=== PATIENT | male | born 1930 | race Caucasian/White ===

== ENCOUNTER 2018-07-04 05:49 | Outpatient (CLI) | payer MEDICARE ==
[~2018-07-04] VITALS: Ht 165.1 cm; Wt 74.8 kg
[2018-07-04] MEDS ORDERED: PANT40TA3 PO (10:53)
[2018-07-04] MEDS ORDERED: ATOR40TA70 PO (10:53)
[2018-07-04] MEDS ORDERED: AMLO5TAB9 PO (10:53)
[2018-07-04] MEDS ORDERED: CARB1TAB19 PO (10:53)
[2018-07-04] MEDS ORDERED: HYDR50TA76 PO (10:53)
[2018-07-04] MEDS ORDERED: POTA10TA6 PO (11:09)
[2018-07-04] MEDS ORDERED: TAMS0.4C98 PO (11:09)
[2018-07-04] MEDS ORDERED: FURO40TA4 PO ×2 (11:09)
== END 2018-07-04 11:13 | disposition home or self-care (01) ==
LOC: PREOP 05:49
PROVIDERS: ATTEND Urology
DX: Z01.818 Encounter for other preprocedural examination (principal)

== ENCOUNTER 2018-07-10 06:39 | Day surgery (SDC) | payer MEDICARE ==
[~2018-07-10] VITALS: Ht 165.1 cm; Wt 74.8 kg
[2018-07-10] VITALS (10 sets, daily range): BP systolic 119–138; BP diastolic 58–73
[~2018-07-10 06:39] MED LIST: AMLO5TAB9 PO; ATOR40TA70 PO; CARB1TAB19 PO; FURO40TA4 PO; HYDR50TA76 PO; PANT40TA3 PO; POTA10TA6 PO; TAMS0.4C98 PO
[2018-07-10] MEDS ORDERED: LACTATED RINGERS 1,000 ML IV PRN ×2 (07:23→07:52)
--- NOTE | 2018-07-10 07:29 | Progress Note-Pre Operative ---
Pre-Operative Progress Note H&P Reviewed The H&P was reviewed, patient examined and no changes noted. Date Seen by Provider: July 10, 2018 Time Seen by Provider: 07: Date H&P Reviewed: July 10, 2018 Time H&P Reviewed: :29 Pre-Operative Diagnosis: BPH AND RETENTION JEN REYES MD July 10, 2018 07:29
[2018-07-10] MEDS ORDERED: FAMOTIDINE 20MG/2ML IV (PEPCID) IV ONE (07:30)
[2018-07-10] MEDS ORDERED: cefTRIAXone 1,000 MG IV (ROCEPHIN) VIAL ONE ×2 (07:56)
[2018-07-10] MEDS ORDERED: WATER (STERILE) FOR INJECTION 10 ML ONE (07:56)
[2018-07-10] MEDS ORDERED: cefTRIAXone FOR IV USE 1,000 MG in WATER (STERILE) FOR INJECTION 10 ML IV ONE (08:00)
[2018-07-10] MEDS ORDERED: SEVOFLURANE (ULTANE) 15 ML INHAL SOLN ONE (08:14)
[2018-07-10] MEDS ORDERED: proPOfol 200 MG/20 ML (DIPRIVAN) VIAL IV ONE (08:14)
[2018-07-10] MEDS ORDERED: LIDOCAINE PF 2% 5 ML (XYLOCAINE) VIAL ONE (08:14)
[2018-07-10] MEDS ORDERED: fentaNYL INJECTION 100 MCG/2 ML AMP ONE (08:15)
--- OUTSIDE RECORDS SUMMARY | 2018-07-10 08:42 | XMS REPORT | Continuity of Care Document ---
Author Organization Unknown Address Unknown Allergies Active Description Code Type Severity Reaction Onset Reported/Identified Relationship to Patient Clinical Status Yes NO KNOWN DRUG ALLERGIES NO KNOWN DRUG ALLERG UNKNOWN Yes NO KNOWN DRUG ALLERGIES UNKNOWN NO KNOWN DRUG ALLERG Medications Medication Packaging Start Date Stop Date Route Dosage Sig CEFDINIR CAP 300 MG (OMNICEF) MG 12/07/2016 ONCE&2211 IPRATROPIUM/ALBUTEROL INH SOLN (DUO-NEB INH SOLN) MLS 12/07/2016 12/07/2016 ONCE&2211 Fluarix QUAD 3044-0017 (PF) (flu vac 36mos up(PF)Adult IM syringe ML 01/22/2017 01/22/2017 ONCE&1900 HYDRALAZINE TAB 25 MG (APRESOLINE) Dose(s) 01/22/2017 01/29/2017 TID&0800,1400,2000 CARBI/L-DOPA 25/100 TAB 0 (SINEMET 25/100) Dose(s) 01/22/2017 01/29/2017 BID&0800,2000 NORMAL SALINE 1000CC IV BAG INJ 0.9 % (NS 1000CC IV BAG) ml 01/22/2017 02/06/2017 CONTINUOUSEVERY 0 Hour Normal Saline 1000cc W/KCl 20mEq ml 01/22/2017 01/29/2017 CONTINUOUSEVERY 0 Hour POTASSIUM CHLORIDE 10% LIQ 20 MEQ/15CC MEQ 01/22/2017 01/22/2017 ONCE&2013 PANTOPAZOLE VIAL INJ 40 MG (PROTONIX IV) MG 01/22/2017 01/31/2017 Daily&2100 FENTANYL INJ 100 MCG/2CC VIAL MCG 01/22/2017 01/25/2017 PRN Q2H Piperacillin-tazobactam IV 3.375Gm vial (Zosyn) GM 01/22/2017 01/29/2017 Q8H&0600,1400,2200 ACETAMINOPHEN ORAL TABLET 325mg(Tylenol) MG 01/23/2017 02/01/2017 PRN EVERY 4 Hour ACETAMINOPHEN SUPPOS SUP 650 MG (TYLENOL) MG 01/23/2017 01/29/2017 PRN Q4H CALMOSEPTINE OINT TUBE (RISAMINE OINT) anuel 01/23/2017 01/29/2017 BID&0800,2000 AMLODIPINE TAB 5 MG (NORVASC) Dose(s) 01/23/2017 01/29/2017 Daily&0900 NORMAL SALINE 1000CC IV BAG INJ 0.9 % (NS 1000CC IV BAG) ml 01/23/2017 02/07/2017 CONTINUOUSEVERY 0 Hour FLUCONAZOLE IV PREMIX BAG INJ 200 MG/100CC (DIFLUCAN IV 100CC BAG) MG 01/23/2017 01/23/2017 Q24H&1400 FLUCONAZOLE IV PREMIX BAG INJ 200 MG/100CC (DIFLUCAN IV 100CC BAG) MG 01/24/2017 01/30/2017 Q24H&1400 POTASSIUM CHLORIDE TAB 20 MEQ (K-DUR) MEQ 03/09/2017 03/09/2017 ONCE&1416 HYDRALAZINE TAB 25 MG (APRESOLINE) MG 03/11/2017 03/17/2017 TID&0800,1400,2000 CARBI/L-DOPA 25/100 TAB 0 (SINEMET 25/100) tab 03/11/2017 03/17/2017 BID&0800,2000 POTASSIUM CHLORIDE TAB 10 MEQ (K-DUR) MEQ 03/11/2017 03/17/2017 Daily&0900 IRON/FOLIC ACID/B12 CAP 0 (NIFEREX FORTE-150) cap 03/11/2017 03/17/2017 Daily&0900 AMLODIPINE TAB 5 MG (NORVASC) MG 03/17/2017 Daily&0900 Aspirin ENTERIC COATED TAB 325 MG (ECOTRIN) MG 03/11/2017 03/17/2017 Daily&0900 ACETAMINOPHEN ORAL TABLET 325mg(Tylenol) MG 03/18/2017 03/28/2017 PRN EVERY 6 Hour LORAZEPAM TAB 0.5 MG (ATIVAN) MG 04/17/2017 PRN Q6H POLYETHYLENE GLYCOL POWDER UD PWD (MIRALAX 17GM UNIT DOSE PAKS) gm 03/18/2017 04/17/2017 PRN Q3H Haloperidol 0.25mg (Haldol) oral tablet MG 03/18/2017 03/28/2017 PRN Q6H ALUM/MAG/SIMETH 30CC LIQ (MYLANTA PLUS) cc 03/18/2017 04/17/2017 PRN Q4H TAMSULOSIN CAP 0.4 MG (FLOMAX) MG 03/18/2017 04/16/2017 QPM&1800 CARBI/L-DOPA 25/100 TAB (SINEMET 25/100) tab 03/18/2017 04/17/2017 BID&0800,2000 SIMVASTATIN TAB 40 MG (ZOCOR) MG 04/16/2017 QPM&2000 LACTULOSE SYRUP LIQ 20 GM/30CC (CHRONULAC SYRUP) GM 03/18/2017 03/28/2017 BID&0800,2000 HYDRALAZINE TAB 25 MG (APRESOLINE) MG 03/18/2017 04/17/2017 TID&0800,1400,2000 MILK OF MAGNESIA LIQ ml 03/18/2017 03/25/2017 PRN BID ASPIRIN ENTERIC COATED TAB 81 MG (BABY ASPIRIN EC) MG 03/18/2017 04/16/2017 QHS&2100 CALMOSEPTINE OINT TUBE (RISAMINE OINT) anuel 03/18/2017 04/17/2017 PRN QID LOPERAMIDE CAP 2 MG (IMMODIUM) MG 03/18/2017 03/25/2017 PRN QID CIPROFLOXACIN TAB 500 MG (CIPRO) MG 03/19/2017 03/19/2017 ONCE&0800 AMLODIPINE TAB 5 MG (NORVASC) MG 04/17/2017 Daily&0900 PANTOPRAZOLE TAB 40 MG (PROTONIX) MG 03/19/2017 04/17/2017 Daily&0900 POTASSIUM CHLORIDE TAB 20 MEQ (K-DUR) MEQ 03/19/2017 04/17/2017 Daily&0900 FUROSEMIDE TAB 80 MG (LASIX) MG 04/17/2017 Daily&0900 BISACODYL SUPPOS 10 MG (DULCOLAX SUPPOS) MG 03/19/2017 03/26/2017 PRN Daily CYANOCOBALAMIN TAB 1000 MCG (VIT B 12) MCG 03/19/2017 04/17/2017 Daily&0900 URO-JET (LIDOCAINE) INJ 2 % (UROJECT) APPLICATION 03/23/2017 03/23/2017 ONCE&1505 URO-JET (LIDOCAINE) INJ 2 % (UROJECT) APPLICATION 07/02/2018 07/02/2018 ONCE&1645 Problems Date Dx Coded Attending Type Code Diagnosis Diagnosed By 01/06/2016 W 272.4 OTHER AND UNSPECIFIED HYPERLIPIDEMIA 01/06/2016 W 401.0 MALIGNANT ESSENTIAL HYPERTENSION 01/06/2016 W 427.31 ATRIAL FIBRILLATION 01/06/2016 W 428.9 HEART FAILURE , UNSPECIFIED 01/06/2016 A 578.9 01/06/2016 W E78.5 HYPERLIPIDEMIA , UNSPECIFIED 01/06/2016 W I10 ESSENTIAL ( PRIMARY) HYPERTENSION 01/06/2016 W I48.91 UNSPECIFIED ATRIAL FIBRILLATION 01/06/2016 W I50.9 HEART FAILURE , UNSPECIFIED 01/06/2016 A K92.2 GASTROINTESTINAL HEMORRHAGE, UNSPECIFIED 02/19/2016 Edgardo Burks 272.4 OTHER AND UNSPECIFIED HYPERLIPIDEMIA 02/19/2016 Edgardo Burks 401.9 UNSPECIFIED ESSENTIAL HYPERTENSION 02/19/2016 Edgardo Burks 427.31 ATRIAL FIBRILLATION 02/19/2016 Edgardo Burks 428.0 02/19/2016 Edgardo Burks 780.60 02/19/2016 Edgardo Burks 786.2 02/19/2016 Edgardo Burks E78.5 HYPERLIPIDEMIA, UNSPECIFIED 02/19/2016 Edgardo Burks I10 ESSENTIAL (PRIMARY) HYPERTENSION 02/19/2016 Edgardo Burks I48.91 UNSPECIFIED ATRIAL FIBRILLATION 02/19/2016 Edgardo Burks I50.9 HEART FAILURE, UNSPECIFIED 02/19/2016 Edgardo Burks R05 COUGH 02/19/2016 Edgardo Burks R50.9 FEVER, UNSPECIFIED 02/19/2016 Edgardo Burks 466.0 ACUTE BRONCHITIS 02/19/2016 Edgardo Burks J20.9 ACUTE BRONCHITIS, UNSPECIFIED 12/07/2016 Brokob, Kiara A 466.0 ACUTE BRONCHITIS 12/07/2016 Brokob, Kiara A J20.9 ACUTE BRONCHITIS, UNSPECIFIED 01/22/2017 Socrates Mcknight 272.4 01/22/2017 Socrates Mcknight 332.0 PARALYSIS AGITANS 01/22/2017 Socrates Mcknight W 401.9 UNSPECIFIED ESSENTIAL HYPERTENSION 01/22/2017 Kido, Takaaki W 427.31 ATRIAL FIBRILLATION 01/22/2017 Sabino Mcknightki W 428.0 CONGESTIVE HEART FAILURE, UNSPECIFIED 01/22/2017 Socrates Mcknight W E78.5 HYPERLIPIDEMIA, UNSPECIFIED 01/22/2017 Juan Luis Takvernaki W G20 PARKINSON'S DISEASE 01/22/2017 Juan Luis Takvernaki W I10 ESSENTIAL (PRIMARY) HYPERTENSION 01/22/2017 Socrates Mcknight W I48.2 CHRONIC ATRIAL FIBRILLATION 01/22/2017 Socrates Mcknight W I50.9 HEART FAILURE, UNSPECIFIED 01/22/2017 Socrates Mcknight W R13.1 DYSPHAGIA 01/22/2017 Sabino Mcknightki W 272.4 01/22/2017 Socrates Mcknight W 332.0 PARALYSIS AGITANS 01/22/2017 Sabino Mcknightki W 401.9 UNSPECIFIED ESSENTIAL HYPERTENSION 01/22/2017 Sabino Mcknightki W 427.31 ATRIAL FIBRILLATION 01/22/2017 Socrates Mcknight W 428.0 01/22/2017 Socrates Mcknight W E78.5 HYPERLIPIDEMIA, UNSPECIFIED 01/22/2017 Socrates Mcknight W G20 PARKINSON'S DISEASE 01/22/2017 Socrates Mcknight W I10 ESSENTIAL (PRIMARY) HYPERTENSION 01/22/2017 Socrates Mcknight W I48.2 CHRONIC ATRIAL FIBRILLATION 01/22/2017 Socrates Mcknight W I50.9 HEART FAILURE, UNSPECIFIED 01/22/2017 Socrates Mcknight W R13.1 DYSPHAGIA 01/22/2017 Sabino Mcknightki W 272.4 01/22/2017 Sabino Mcknightki W 332.0 PARALYSIS AGITANS 01/22/2017 Sabino Mcknightki W 401.9 UNSPECIFIED ESSENTIAL HYPERTENSION 01/22/2017 Sabino Mcknightki W 427.31 ATRIAL FIBRILLATION 01/22/2017 Sabino Mcknightki W 428.0 01/22/2017 Socrates Mcknight W E78.5 HYPERLIPIDEMIA, UNSPECIFIED 01/22/2017 Sabino Mcknightki W G20 PARKINSON'S DISEASE 01/22/2017 Socrates Mcknight W I10 ESSENTIAL (PRIMARY) HYPERTENSION 01/22/2017 Socrates Mcknight W I48.2 CHRONIC ATRIAL FIBRILLATION 01/22/2017 Juan LuisRussjennifer W I50.9 HEART FAILURE, UNSPECIFIED 01/22/2017 Juan Luis Russjennifer W R13.1 DYSPHAGIA 01/24/2017 Socrates Mcknight A 112.84 01/24/2017 Juan Luis Russjennifer W 272.4 01/24/2017 Socrates Mcknight W 285.9 01/24/2017 Socrates Mcknight W 332.0 PARALYSIS AGITANS 01/24/2017 Socrates Mcknight W 401.9 UNSPECIFIED ESSENTIAL HYPERTENSION 01/24/2017 Socrates Mcknight W 427.31 ATRIAL FIBRILLATION 01/24/2017 Socrates Mcknight W 428.0 01/24/2017 Socrates Mcknight W 530.81 01/24/2017 Socrates Mcknight W 535.50 01/24/2017 Juan Luis Russjennifer W 552.3 01/24/2017 Socrates Mcknight A B37.81 01/24/2017 Socrates Mcknight W D64.9 ANEMIA, UNSPECIFIED 01/24/2017 Juan Luis Russjennifer W E78.5 HYPERLIPIDEMIA, UNSPECIFIED 01/24/2017 Juan Luis Russjennifer W G20 PARKINSON'S DISEASE 01/24/2017 Socrates Mcknight W I10 ESSENTIAL (PRIMARY) HYPERTENSION 01/24/2017 Juan Luis Russjennifer W I48.2 CHRONIC ATRIAL FIBRILLATION 01/24/2017 Juan Luis Russjennifer W I50.9 HEART FAILURE, UNSPECIFIED 01/24/2017 oScrates Mcknight W K21.0 01/24/2017 Socrates Mcknight W K29.60 OTHER GASTRITIS WITHOUT BLEEDING 01/24/2017 Socrates Mcknight W K44.9 DIAPHRAGMATIC HERNIA WITHOUT OBSTRUCTION OR GANGRENE 01/24/2017 Socrates Mcknight W R13.1 DYSPHAGIA 03/09/2017 Jean-Paul Mckeon 788.20 RETENTION OF URINE, UNSPECIFIED 03/09/2017 Jean-Paul Mckeon R33.9 RETENTION OF URINE, UNSPECIFIED 03/11/2017 Santiago Porras 599.0 URINARY TRACT INFECTION, SITE NOT SPECIFIED 03/11/2017 Santiago Porras 788.20 RETENTION OF URINE, UNSPECIFIED 03/11/2017 Santiago Porras N39.0 URINARY TRACT INFECTION, SITE NOT SPECIFIED 03/11/2017 Chiquita Santiago Phillips R33.9 RETENTION OF URINE, UNSPECIFIED 03/11/2017 IMLES MTZ A 788.20 RETENTION OF URINE, UNSPECIFIED 03/11/2017 BIBIMILES A R33.9 RETENTION OF URINE, UNSPECIFIED 03/12/2017 Santiago Porras A 788.20 RETENTION OF URINE, UNSPECIFIED 03/12/2017 Santiago Porras A R33.9 RETENTION OF URINE, UNSPECIFIED 03/13/2017 Rosa M Clemente A 788.20 RETENTION OF URINE, UNSPECIFIED 03/13/2017 Rosa M Clemente A R33.9 RETENTION OF URINE, UNSPECIFIED 03/18/2017 Floyd, Jer W 307.9 OTHER AND UNSPECIFIED SPECIAL SYMPTOMS OR SYNDROMES, NOT ELSEWHERE CLASSIFIED 03/18/2017 Floyd, Jer W 332.0 PARALYSIS AGITANS 03/18/2017 Floyd, Jer W 427.32 ATRIAL FLUTTER 03/18/2017 Floyd Jer W F03 UNSPECIFIED DEMENTIA 03/18/2017 Floyd Jer W G20 PARKINSON'S DISEASE 03/18/2017 Floyd, Jer W I48.1 PERSISTENT ATRIAL FIBRILLATION 03/18/2017 Floyd Jer W R45.1 RESTLESSNESS AND AGITATION 03/18/2017 Floyd, Jer W 307.9 OTHER AND UNSPECIFIED SPECIAL SYMPTOMS OR SYNDROMES, NOT ELSEWHERE CLASSIFIED 03/18/2017 Floyd, Jer W 332.0 PARALYSIS AGITANS 03/18/2017 Floyd Jer W 401.9 03/18/2017 Floyd, Jer W 427.32 ATRIAL FLUTTER 03/18/2017 Floyd, Jer W 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 (LUTS) 03/18/2017 FloydGutierrezb W 788.20 03/18/2017 Floyd Jer W F03 UNSPECIFIED DEMENTIA 03/18/2017 Floyd Jer W G20 PARKINSON'S DISEASE 03/18/2017 Floyd Jer W I10 ESSENTIAL (PRIMARY) HYPERTENSION 03/18/2017 FloydGutierrez simmonsb W I48.1 PERSISTENT ATRIAL FIBRILLATION 03/18/2017 Floyd, Jer W N40.1 ENLARGED PROSTATE WITH LOWER URINARY TRACT SYMPTOMS 03/18/2017 FloydXochilt simmonshaib W R33.9 RETENTION OF URINE, UNSPECIFIED 03/18/2017 Floyd Jer W R45.1 RESTLESSNESS AND AGITATION 03/20/2017 Floyd, Jer W 307.9 OTHER AND UNSPECIFIED SPECIAL SYMPTOMS OR SYNDROMES, NOT ELSEWHERE CLASSIFIED 03/20/2017 Floyd, Jre W 332.0 PARALYSIS AGITANS 03/20/2017 Floyd Jer W 401.9 03/20/2017 Floyd Jer W 427.32 03/20/2017 Floyd, Jer W 600.01 03/20/2017 Floyd Jer W 788.20 03/20/2017 Floyd, Jer W F03 UNSPECIFIED DEMENTIA 03/20/2017 Floyd, Jer W G20 PARKINSON'S DISEASE 03/20/2017 Floyd Jer W I10 ESSENTIAL (PRIMARY) HYPERTENSION 03/20/2017 FloydGutierrez simmonsb W I48.1 PERSISTENT ATRIAL FIBRILLATION 03/20/2017 FloydGutierrez simmonsb W N40.1 ENLARGED PROSTATE WITH LOWER URINARY TRACT SYMPTOMS 03/20/2017 FloydXochilt simmonshaib W R33.9 RETENTION OF URINE, UNSPECIFIED 03/20/2017 FloydGutierrez simmonsb W R45.1 RESTLESSNESS AND AGITATION 03/21/2017 Xochilt Barrientoshaib A 290.41 03/21/2017 Floyd, Jer W 296.20 03/21/2017 Floyd, Jer W 307.9 OTHER AND UNSPECIFIED SPECIAL SYMPTOMS OR SYNDROMES, NOT ELSEWHERE CLASSIFIED 03/21/2017 FloydXochilt simmonshaib W 332.0 PARALYSIS AGITANS 03/21/2017 Floyd Jer W 401.9 03/21/2017 Floyd, Jer W 427.32 03/21/2017 Floyd Jer W 600.01 03/21/2017 Floyd Jer W 788.20 03/21/2017 Gutierrez Barrientosb A F01.51 03/21/2017 Gutierrez Barrientosb W F03 UNSPECIFIED DEMENTIA 03/21/2017 Gutierrez Barrientosb W F32.9 MAJOR DEPRESSIVE DISORDER, SINGLE EPISODE, UNSPECIFIED 03/21/2017 Gutierrez Barrientosb W G20 PARKINSON'S DISEASE 03/21/2017 FloydGutierrezb W I10 ESSENTIAL (PRIMARY) HYPERTENSION 03/21/2017 Floyd, Jer W I48.1 PERSISTENT ATRIAL FIBRILLATION 03/21/2017 FloydXochiltJer W I48.2 CHRONIC ATRIAL FIBRILLATION 03/21/2017 FloydGutierrezb W N40.1 ENLARGED PROSTATE WITH LOWER URINARY TRACT SYMPTOMS 03/21/2017 FloydXochiltJer W R33.9 RETENTION OF URINE, UNSPECIFIED 03/21/2017 Gutierrez Barrientosb W R45.1 RESTLESSNESS AND AGITATION 03/21/2017 Floyd, Jer W R45.850 03/21/2017 Floyd, Jer W V62.85 03/23/2017 Nader Hartman A 788.20 RETENTION OF URINE, UNSPECIFIED 03/23/2017 Nader Hartman A R33.9 RETENTION OF URINE, UNSPECIFIED 10/09/2017 Bryn, Rosa M W 782.3 EDEMA 10/09/2017 [facility], Rosa M W R60.0 LOCALIZED EDEMA 10/09/2017 [facility], Rosa M A 401.0 MALIGNANT ESSENTIAL HYPERTENSION 10/09/2017 [facility], Rosa M W 782.3 EDEMA 10/09/2017 Bryn, Rosa M A I10 ESSENTIAL (PRIMARY) HYPERTENSION 10/09/2017 Bryn, Rosa M W R60.0 LOCALIZED EDEMA 10/30/2017 Bryn, Rosa M A 401.9 UNSPECIFIED ESSENTIAL HYPERTENSION 10/30/2017 Bryn, Rosa M W 427.31 ATRIAL FIBRILLATION 10/30/2017 Bryn, Rosa M A I10 ESSENTIAL (PRIMARY) HYPERTENSION 10/30/2017 Bryn, Rosa M W I48.91 UNSPECIFIED ATRIAL FIBRILLATION 04/06/2018 Edgardo Burks 788.20 RETENTION OF URINE, UNSPECIFIED 04/06/2018 Edgardo Burks R33.9 RETENTION OF URINE, UNSPECIFIED 04/09/2018 Edgardo Burks V53.6 FITTING AND ADJUSTMENT OF URINARY DEVICES 04/09/2018 Edgardo Burks Z46.6 ENCOUNTER FOR FITTING AND ADJUSTMENT OF URINARY DEVICE 05/08/2018 Bryn, Rosa M W 401.0 MALIGNANT ESSENTIAL HYPERTENSION 05/08/2018 Bryn, Rosa M W 427.32 ATRIAL FLUTTER 05/08/2018 Bryn, Rosa M W I10 ESSENTIAL (PRIMARY) HYPERTENSION 05/08/2018 Bryn, Rosa M W I48.2 CHRONIC ATRIAL FIBRILLATION 05/08/2018 Bryn, Rosa M W 401.0 MALIGNANT ESSENTIAL HYPERTENSION 05/08/2018 Bryn, Rosa M W 427.32 ATRIAL FLUTTER 05/08/2018 Bryn, Rosa M W 788.20 RETENTION OF URINE, UNSPECIFIED 05/08/2018 Bryn, Rosa M W I10 ESSENTIAL (PRIMARY) HYPERTENSION 05/08/2018 Bryn, Rosa M W I48.2 CHRONIC ATRIAL FIBRILLATION 05/08/2018 Bryn, Rosa M W N13.8 OTHER OBSTRUCTIVE AND REFLUX UROPATHY 05/08/2018 Bryn, Rosa M W 401.0 MALIGNANT ESSENTIAL HYPERTENSION 05/08/2018 Bryn, Rosa M W 427.32 ATRIAL FLUTTER 05/08/2018 Bryn, Rosa M W 788.20 RETENTION OF URINE, UNSPECIFIED 05/08/2018 Bryn, Rosa M W I10 ESSENTIAL (PRIMARY) HYPERTENSION 05/08/2018 Bryn, Rosa M W I48.2 CHRONIC ATRIAL FIBRILLATION 05/08/2018 Bryn, Rosa M W N13.8 OTHER OBSTRUCTIVE AND REFLUX UROPATHY 06/02/2018 Bravo Cerrato W 428.0 CONGESTIVE HEART FAILURE, UNSPECIFIED 06/02/2018 PaBravo bradford W 786.5 CHEST PAIN 06/02/2018 PaBravo bradford W I50.9 HEART FAILURE, UNSPECIFIED 06/02/2018 PaBravo bradford W R07.9 CHEST PAIN, UNSPECIFIED 06/02/2018 PaBravo bradford W 428.0 CONGESTIVE HEART FAILURE, UNSPECIFIED 06/02/2018 PaBravo bradford W 786.5 CHEST PAIN 06/02/2018 PaBravo bradford W I50.9 HEART FAILURE, UNSPECIFIED 06/02/2018 PaBravo bradford W R07.89 OTHER CHEST PAIN 06/02/2018 PaBravo bradford W R07.9 CHEST PAIN, UNSPECIFIED 07/02/2018 Howayek, Edgardo W 788.20 RETENTION OF URINE, UNSPECIFIED 07/02/2018 Vitaliy Edgardo W R33.9 RETENTION OF URINE, UNSPECIFIED Procedures There is no data. Results Test Result Range Comprehensive Metabolic Panel - 02/19/16 12:26 Albumin 3.6 g/dL 3.6-5.1 ALP 81 U/L 35-130 ALT <6 U/L 6-45 Anion Gap 15 6-14 AST 22 U/L 2-40 BUN 15 mg/dL 5-25 Calcium 8.8 mg/dL 8.3-10.4 Chloride 104 mmol/L 95-114 CO2 25 mEq/L 22-33 Creat 1.29 mg/dL 0.50-1.50 eGFR 53 mL/min/1.73m2 >59 Globulin 2.7 g/dL 2.3-3.5 Glucose 101 mg/dL 70-110 Osmo 290 280-295 Potassium 4.0 mmol/L 3.5-5.3 Sodium 140 mmol/L 134-148 TBil 0.8 mg/dL 0.2-1.2 TP 6.3 g/dL 6.0-8.3 Thyroid Stimulating Hormone - 07/14/16 10:35 TSH 2.06 mIU/mL 0.32-5.00 Urinalysis - 07/18/16 06:48 Icotest N/A Negative Urine Volume Urine Volume Sufficient (10mL) Urine Yeast No Yeast present Urine-Appearance Clear Clear Urine-Bacteria 4+ Urine-Bilirubin Negative Negative Urine-Blood Negative Negative Urine-Color Yellow Colorless-Lt. Yellow Urine-Glucose Negative Negative Urine-Ketones Negative Negative Urine-Leukocytes Negative Negative Urine-Nitrite Positive Negative Urine-Other Culture to follow Urine-pH 6.5 5-8.5 Urine-Protein Negative Negative Urine-RBC Negative Urine-Specific [place] 1.015 1.000-1.030 Urine-WBC Rare/HPF Urobilinogen 0.2 E.U./dL 0.2-1.0 Urine Culture - 07/18/16 06:48 PRELIM CULTURE RESULTS >100,000 Gram Negative and Gram Positive [id number] / ID to Follow MEDIA PLATED Setup at 14:12 on 07/18/2016 CULTURE SOURCE void Sensi - 07/18/16 06:48 Ampicillin/Sulbactam <=8/4 Ampicillin <=2 Amoxicillin/K Clavulanate <=4/2 Ceftriaxone >32 Clindamycin >4 Cefoxitin Screen N/R Ciprofloxacin <=1 Daptomycin 1 Erythromycin >4 Nitrofurantoin <=32 Gentamicin >8 Gentamicin Synergy Screen <=500 Inducible Clindamycin N/R Levofloxacin <=1 Linezolid 2 Moxifloxacin <=0.5 Oxacillin >2 Penicillin 2 Rifampin 2 Streptomycin Synergy >1000 Synercid N/R Trimethoprim/ Sulfamethoxazole >2/38 Tetracycline >8 Vancomycin 1 FINAL CULTURE RESULTS [facility] fa[facility]alis [facility]olate [facility] 06:48 Ampicillin/Sulbactam 16/8 Ampicillin >16 Amoxicillin/K Clavulanate <=8/4 Ceftriaxone <=8 Ciprofloxacin <=1 Nitrofurantoin >64 Gentamicin <=4 Levofloxacin <=2 Trimethoprim/ Sulfamethoxazole >2/38 Tetracycline >8 Amikacin <=16 Aztreonam <=8 Ceftazidime <=1 Ceftazidime/K Clavulanate 2 Cephalothin >16 Cefotaxime <=2 Cefotaxime/K Clavulanate <=0.5 Cefoxitin >16 Cefazolin >16 Cefepime <=8 Cefuroxime >16 Ertapenem 2 Imipenem <=4 Meropenem <=4 Piperacillin/Tazobactam <=16 Piperacillin 32 Tigecycline 4 Tobramycin <=4 FINAL CULTURE RESULTS Klebsiella pneumoniae (Isolate 2) [facility] - 07/18/16 06:48 FINAL CULTURE RESULTS Morganella morganii (Isolate 1) Ampicillin/Sulbactam >16/8 Ampicillin >16 Amoxicillin/K Clavulanate >16/8 Ceftriaxone <=8 Ciprofloxacin <=1 Nitrofurantoin 64 Gentamicin <=4 Levofloxacin <=2 Trimethoprim/ Sulfamethoxazole <=2/38 Tetracycline >8 Amikacin <=16 Aztreonam <=8 Ceftazidime <=1 Ceftazidime/K Clavulanate >2 Cephalothin >16 Cefotaxime <=2 Cefotaxime/K Clavulanate <=0.5 Cefoxitin 16 Cefazolin >16 Cefepime <=8 Cefuroxime >16 Ertapenem <=1 Imipenem <=4 Meropenem <=4 Piperacillin/Tazobactam <=16 Piperacillin <=16 Tigecycline 4 Tobramycin <=4 Lipid Panel - 07/22/16 08:27 C/HDL 3.5 3.7-6.7 Cholesterol 127 mg/dL 100-240 HDL 36 mg/dL 30-85 LDL-Calculated 69 mg/dL 0-100 Trig 112 mg/dL 35-160 VLDL 22 mg/dL 0-42 BNP - 12/07/16 21:09 BNP 294.90 pg/ml 0.00-100.00 Comprehensive Metabolic Panel - 01/22/17 19:15 Albumin 3.5 g/dL 3.6-5.1 ALP 73 U/L 35-130 ALT 7 U/L 6-45 Anion Gap 16 6-14 AST 21 U/L 2-40 BUN 22 mg/dL 5-25 Calcium 8.3 mg/dL 8.3-10.4 Chloride 103 mmol/L 95-114 CO2 23 mEq/L 22-33 Creat 1.57 mg/dL 0.50-1.50 eGFR 42 mL/min/1.73m2 >59 Globulin 3.1 g/dL 2.3-3.5 Glucose 102 mg/dL 70-110 Osmo 290 280-295 Potassium 3.1 mmol/L 3.5-5.3 Sodium 139 mmol/L 134-148 TBil 0.9 mg/dL 0.2-1.2 TP 6.6 g/dL 6.0-8.3 Urinalysis - 01/23/17 05:15 Icotest N/A Negative Urine Casts 5-10 Hyaline Urine Volume Urine Volume Sufficient (10mL) Urine Yeast No Yeast present Urine-Appearance Clear Clear Urine-Bacteria Negative Urine-Bilirubin Negative Negative Urine-Blood Negative Negative Urine-Color Yellow Colorless-Lt. Yellow Urine-Glucose Negative Negative Urine-Ketones Negative Negative Urine-Leukocytes Negative Negative Urine-Mucus 4+ Urine-Nitrite Negative Negative Urine-Other Urine Saved if Culture Needed (48hrs from time of collection) Urine-pH 5.5 5-8.5 Urine-Protein Negative Negative Urine-RBC Negative Urine-Specific [place] 1.015 1.000-1.030 Urine-WBC Negative Urobilinogen 0.2 E.U./dL 0.2-1.0 Magnesium - 01/23/17 06:59 Mg++ 1.9 mg/dL 1.6-2.6 Surgical Pathology - 01/23/17 13:45 Surg Path Sent to [facility] Fungus (Mycology) Culture - 01/23/17 13:45 FUNGUS (MYCOLOGY) CULTURE FINAL REPORT RESULT 1 NO YEAST OR MOLD ISOLATED AFTER 4 WEEKS. Comprehensive Metabolic Panel - 01/24/17 06:49 Albumin 3.2 g/dL 3.6-5.1 ALP 76 U/L 35-130 ALT <6 U/L 6-45 Anion Gap 15 6-14 AST 25 U/L 2-40 BUN 18 mg/dL 5-25 Calcium 8.0 mg/dL 8.3-10.4 Chloride 107 mmol/L 95-114 CO2 22 mEq/L 22-33 Creat 1.37 mg/dL 0.50-1.50 eGFR 49 mL/min/1.73m2 >59 Globulin 2.4 g/dL 2.3-3.5 Glucose 74 mg/dL 70-110 Osmo 292 280-295 Potassium 3.3 mmol/L 3.5-5.3 Sodium 141 mmol/L 134-148 TBil 1.0 mg/dL 0.2-1.2 TP 5.6 g/dL 6.0-8.3 Urinalysis - 03/09/17 13:06 Icotest N/A Negative Urine Volume Urine Volume Sufficient (10mL) Urine Yeast No Yeast present Urine-Appearance Clear Clear Urine-Bacteria Negative Urine-Bilirubin Negative Negative Urine-Blood Negative Negative Urine-Color Yellow Colorless-Lt. Yellow Urine-Glucose Negative Negative Urine-Ketones Negative Negative Urine-Leukocytes Negative Negative Urine-Nitrite Negative Negative Urine-Other Culture to follow Urine-pH 5.5 5-8.5 Urine-Protein Negative Negative Urine-RBC 0-2/HPF Urine-Specific [place] 1.015 1.000-1.030 Urine-WBC Rare/HPF Urobilinogen 0.2 E.U./dL 0.2-1.0 BMP - 03/09/17 13:12 Anion Gap 13 6-14 BUN 16 mg/dL 5-25 Calcium 7.9 mg/dL 8.3-10.4 Chloride 102 mmol/L 95-114 CO2 25 mEq/L 22-33 Creat 1.43 mg/dL 0.50-1.50 eGFR 47 mL/min/1.73m2 >59 Glucose 95 mg/dL 70-110 Osmo 284 280-295 Potassium 3.1 mmol/L 3.5-5.3 Sodium 137 mmol/L 134-148 Urinalysis - 03/18/17 13:31 Icotest N/A Negative Urine Volume Urine Volume Sufficient (10mL) Urine Yeast Yeast Present Urine-Appearance Clear Clear Urine-Bacteria Trace Urine-Bilirubin Negative Negative Urine-Blood Negative Negative Urine-Color Yellow Colorless-Lt. Yellow Urine-Epithelial Cells 0-5/HPF Urine-Glucose Negative Negative Urine-Ketones Negative Negative Urine-Leukocytes Negative Negative Urine-Nitrite Negative Negative Urine-Other Urine Saved if Culture Needed (48hrs from time of collection) Urine-pH 5.5 5-8.5 Urine-Protein Negative Negative Urine-RBC 2-5/HPF Urine-Specific [place] 1.015 1.000-1.030 Urine-WBC 2-5/HPF Urobilinogen 0.2 E.U./dL 0.2-1.0 Thyroid Stimulating Hormone - 03/18/17 14:19 TSH 2.37 mIU/mL 0.32-5.00 Urine Culture - 03/18/17 15:30 PRELIM CULTURE RESULTS >100,000 Gram Positive Mixed Ludivina with Yeast. FINAL CULTURE RESULTS >100,000 Yeast [id number] Further Workup done CULTURE SOURCE cath Lipid Panel - 03/19/17 05:35 C/HDL 3.5 3.7-6.7 Cholesterol 95 mg/dL 100-240 HDL 27 mg/dL 30-85 LDL-Calculated 42 mg/dL 0-100 Trig 129 mg/dL 35-160 VLDL 26 mg/dL 0-42 Rapid Drug Screen,Medical - 03/19/17 14:39 Amphetamine NEGATIVE NEGATIVE Barbiturates NEGATIVE NEGATIVE Benzodiazepines NEGATIVE NEGATIVE Cocaine NEGATIVE NEGATIVE Marijuana NEGATIVE NEGATIVE Methylenedioxymethamphetamine NEGATIVE NEGATIVE Opiates NEGATIVE NEGATIVE Oxycodone NEGATIVE NEGATIVE Phencyclidine NEGATIVE NEGATIVE Propoxyphene NEGATIVE NEGATIVE Tricyclic Antidepressant NEGATIVE NEGATIVE Urinalysis - 04/07/17 08:09 Icotest N/A Negative Urine Volume Urine Volume Sufficient (10mL) Urine-Appearance Cloudy Clear Urine-Bacteria 2+ Urine-Bilirubin Negative Negative Urine-Blood Trace-intact Negative Urine-Color Yellow Colorless-Lt. Yellow Urine-Glucose Negative Negative Urine-Ketones Trace Negative Urine-Leukocytes 2+ Negative Urine-Nitrite Negative Negative Urine-Other Culture to follow Urine-pH 5.5 5-8.5 Urine-Protein 1+ Negative Urine-RBC 5-10/HPF Urine-Specific [place] 1.020 1.000-1.030 Urine-WBC TNTC Urobilinogen 0.2 E.U./dL 0.2-1.0 Urine Culture - 04/07/17 08:09 PRELIM CULTURE RESULTS >100,000 Gram Negative MARY KAY / ID to Follow MEDIA PLATED Setup at 15:51 on 04/07/2017 CULTURE SOURCE [id number] Sensi - 04/07/17 08:09 FINAL CULTURE RESULTS Stenotrophomonas maltophilia (Isolate 1) Ampicillin/Sulbactam >16/8 Ampicillin >16 Amoxicillin/K Clavulanate >16/8 Ceftriaxone >32 Ciprofloxacin <=1 Nitrofurantoin >64 Gentamicin >8 Levofloxacin <=2 Trimethoprim/ Sulfamethoxazole <=2/38 Tetracycline <=4 Amikacin >32 Aztreonam >16 Ceftazidime 16 Ceftazidime/K Clavulanate >2 Cephalothin >16 Cefotaxime >32 Cefotaxime/K Clavulanate >4 Cefoxitin >16 Cefazolin >16 Cefepime >16 Cefuroxime >16 Ertapenem >4 Imipenem >8 Meropenem >8 Piperacillin/Tazobactam N/R Piperacillin N/R Tigecycline N/R Tobramycin >8 Urinalysis - 05/11/17 16:38 Icotest N/A Negative Urine Volume Urine Volume Sufficient (10mL) Urine-Appearance Clear Clear Urine-Bilirubin Negative Negative Urine-Blood Negative Negative Urine-Color Yellow Colorless-Lt. Yellow Urine-Glucose Negative Negative Urine-Ketones Negative Negative Urine-Leukocytes Negative Negative Urine-Nitrite Negative Negative Urine-pH 6.0 5-8.5 Urine-Protein Negative Negative Urine-Specific [place] 1.010 1.000-1.030 Urine-WBC Nothing Seen on Microscopic Urobilinogen 0.2 E.U./dL 0.2-1.0 Thyroid Stimulating Hormone - 10/09/17 08:55 TSH 2.46 mIU/mL 0.32-5.00 Thyroid Stimulating Hormone - 10/30/17 11:14 TSH 1.60 mIU/mL 0.32-5.00 Urinalysis - 04/06/18 13:18 Icotest N/A Negative Urine Volume Urine Volume Sufficient (10mL) Urine-Appearance Clear Clear Urine-Bacteria Negative Urine-Bilirubin Negative Negative Urine-Blood Negative Negative Urine-Color Yellow Colorless-Lt. Yellow Urine-Epithelial Cells 0-5/HPF Urine-Glucose Negative Negative Urine-Ketones Negative Negative Urine-Leukocytes Negative Negative Urine-Nitrite Negative Negative Urine-Other Urine Saved if Culture Needed (48hrs from time of collection) Urine-pH 7.0 5-8.5 Urine-Protein Negative Negative Urine-RBC Negative Urine-Specific [place] 1.010 1.000-1.030 Urine-WBC Negative Urobilinogen 0.2 E.U./dL 0.2-1.0 Urine Culture - 04/06/18 13:18 PRELIM CULTURE RESULTS No Growth 24 hours FINAL CULTURE RESULTS No Growth 48 hours CULTURE SOURCE CAth Urinalysis - 05/08/18 09:23 Urinalysis - 05/09/18 09:36 Icotest N/A Negative Urine Volume Urine Volume Sufficient (10mL) Urine-Appearance Slightly Cloudy Clear Urine-Bacteria Trace Urine-Bilirubin Negative Negative Urine-Blood Trace-intact Negative Urine-Color Yellow Colorless-Lt. Yellow Urine-Epithelial Cells 0-5/HPF Urine-Glucose Negative Negative Urine-Ketones Negative Negative Urine-Leukocytes 3+ Negative Urine-Nitrite Negative Negative Urine-Other Culture to follow Urine-pH 6.5 5-8.5 Urine-Protein 1+ Negative Urine-RBC Rare/HPF Urine-Specific [place] 1.010 1.000-1.030 Urine-WBC TNTC Urobilinogen 0.2 E.U./dL 0.2-1.0 Urine Culture - 05/09/18 09:36 PRELIM CULTURE RESULTS >100,000 Gram Positive MARY KAY / ID to Follow [id number]<10,000 Gram Negative MARY KAY/ID to Follow MEDIA PLATED Setup at 10:53 on 05/09/2018 CULTURE SOURCE CC Urinalysis - 06/02/18 08:35 Icotest N/A Negative Urine Volume Urine Volume Sufficient (10mL) Urine-Appearance Clear Clear Urine-Bilirubin Negative Negative Urine-Blood Negative Negative Urine-Color Yellow Colorless-Lt. Yellow Urine-Glucose Negative Negative Urine-Ketones Negative Negative Urine-Leukocytes Negative Negative Urine-Nitrite Negative Negative Urine-pH 7.0 5-8.5 Urine-Protein Negative Negative Urine-Specific [place] 1.015 1.000-1.030 Urine-WBC Nothing Seen on Microscopic Urobilinogen 0.2 E.U./dL 0.2-1.0 Urinalysis - 07/02/18 16:56 Icotest N/A Negative Urine Volume Urine Volume Sufficient (10mL) Urine Yeast No Yeast present Urine-Appearance Clear Clear Urine-Bacteria Negative Urine-Bilirubin Negative Negative Urine-Blood Negative Negative Urine-Color Yellow Colorless-Lt. Yellow Urine-Epithelial Cells rare/HPF Urine-Glucose Negative Negative Urine-Ketones Negative Negative Urine-Leukocytes Negative Negative Urine-Nitrite Negative Negative Urine-Other Culture to follow Urine-pH 7.0 5-8.5 Urine-Protein Negative Negative Urine-RBC Negative Urine-Specific [place] 1.010 1.000-1.030 Urine-WBC Negative Urobilinogen 0.2 0.2-1.0 Urine Culture - 07/02/18 16:56 PRELIM CULTURE RESULTS No Growth 24 hours FINAL CULTURE RESULTS No Growth 48 hours MEDIA PLATED Setup at 17:07 on 07/02/2018 CULTURE SOURCE cath Encounters ACCT No. Visit Date/Time Discharge Status Pt. Type Provider Facility Loc./Unit Complaint [id number] 07/02/2018 16:01:00 07/02/2018 17:45:00 [id number] 06/02/2018 08:20:00 06/02/2018 10:45:00 DIS Outpatient [facility] ER [id number] 05/09/2018 09:17:00 05/09/2018 23:59:00 DIS Outpatient Rosa M Clemente [id number] 05/08/2018 09:17:00 05/08/2018 23:59:00 DIS Outpatient Rosa M Clemente [id number] 04/09/2018 11:44:00 04/09/2018 11:55:00 DIS Outpatient Edgardo Burks [id number] 04/06/2018 12:36:00 04/06/2018 14:35:00 DIS Outpatient Vital[facility] ER [id number] 10/30/2017 11:13:00 10/30/2017 23:59:00 DIS Outpatient Rosa M Clemente [id number] 10/09/2017 08:50:00 10/09/2017 23:59:00 DIS Outpatient Rosa M Clemente [id number] 05/11/2017 16:38:00 05/11/2017 23:59:00 DIS Outpatient Rosa M Clemente [id number] 04/07/2017 08:08:00 04/07/2017 23:59:00 DIS Outpatient Rosa M Clemente [id number] 03/23/2017 14:55:00 03/23/2017 15:30:00 DIS Outpatient Nader Hartman [id number] 03/18/2017 12:30:00 03/21/2017 09:14:00 DIS Inpatient Jer Barrientos [facility] JUAN R [id number] 03/13/2017 15:20:00 03/13/2017 16:04:00 DIS Outpatient Rosa M Clemente [id number] 03/12/2017 18:01:00 03/12/2017 18:40:00 DIS Outpatient Chiquita Santiago [id number] 03/11/2017 10:22:00 03/11/2017 11:35:00 DIS Outpatient COLIN MTZSHUA [facility] ER [id number] 03/11/2017 00:21:00 03/11/2017 01:24:00 DIS Outpatient Chiquita Santiago [id number] 03/09/2017 12:47:00 03/09/2017 14:43:[id number] 01/22/2017 18:03:00 01/24/2017 14:30:00 DIS Outpatient Russ Mcknightlilly [facility] MED-SURG [id number] 12/07/2016 20:48:00 12/07/2016 22:30:00 DIS Outpatient [facility] ER [id number] 07/22/2016 08:23:00 07/22/2016 23:59:00 DIS Outpatient Rosa M Celmente [id number] 07/14/2016 10:31:00 07/14/2016 23:59:00 DIS Outpatient Rosa M Clemente [id number] 02/19/2016 11:56:00 02/19/2016 14:06:00 DIS Outpatient Vital[facility] ER [id number] 12/07/2016 22:11:24 Document Registration [id number] 07/18/2016 06:47:25 Document Registration [id number] 01/31/2016 15:16:04 Document Registration [id number] 07/02/2018 16:01:00 Document Registration [id number] 06/02/2018 08:20:00 Document Registration
[2018-07-10] MEDS ORDERED: SULF1TAB35 PO (08:53)
[2018-07-10] MEDS ORDERED: ASPI-586 PO (08:53)
[2018-07-10] MEDS ORDERED: ONDANSETRON 4 MG/2 ML (SDV) Z0FRAN ONE (09:17)
[2018-07-10] MEDS ORDERED: PHENYLEPHRINE 100 MCG/ML 10 ML (ANESTHESIA) SYR ONE (09:30)
--- NOTE | 2018-07-10 10:03 | Progress Note-Post Operative ---
Post-Operative Progess Note Surgeon (s)/Market Research Assistant (s) Surgeon JEN REYES MD Market Research Assistant: NONE Pre-Operative Diagnosis BPH AND RETENTION Post-Operative Diagnosis SAME Procedure & Operative Findings Date of Procedure 07/10/18 Procedure Performed/Findings UROLIFT IMPLANT Anesthesia Type GENERAL Estimated Blood Loss Estimated blood loss (mL): NEGLIGIBLE Specimens/Packing Specimens Removed NONE Packing: NONE JEN REYES MD July 10, 2018 10:03
[2018-07-10] MEDS ORDERED: HYDROmorphone 2 MG/ML VIAL (DILAUDID) IV ONE (10:15)
[2018-07-10] MEDS ORDERED: ONDANSETRON 4 MG/2 ML (SDV) Z0FRAN IVP PRN (10:15)
[2018-07-10] MEDS ORDERED: MILK OF MAGNESIA 400 MG/5 ML 30 ML UDC PO PRN (10:15)
--- NOTE | 2018-07-10 10:55 | NUR ---
PT ARRIVED TO ROOM. THIS RN TO RESUME CARE.
--- NOTE | 2018-07-10 11:12 | Anesthesia-General Post-Op ---
General Patient Condition Mental Status/LOC: Same as Preop Cardiovascular: Satisfactory Nausea/Vomiting: Absent Respiratory: Satisfactory Pain: Controlled Complications: Absent Post Op Complications Complications None Follow Up Care/Instructions Patient Instructions None needed. Anesthesia/Patient Condition Patient Condition Patient is doing well, no complaints, stable vital signs, no apparent adverse anesthesia problems. No complications reported per nursing. CARTER MERCEDES CRNA July 10, 2018 11:12
[2018-07-10] MEDS: LACTATED RINGERS 1,000 ML IV SCH ×4 (12:26→20:24)
[2018-07-10] MEDS ORDERED: NON-FORMULARY MEDICATION 1 EA EA (Hydroxyzine HCl 50 MG) PO SCH (13:00)
[2018-07-10] MEDS ORDERED: FUROSEMIDE 40 MG (LASIX) TAB PO SCH (13:00)
--- NOTE | 2018-07-10 14:34 | OPERATIVE REPORT ---
DATE OF SERVICE: 07/10/2018 PREOPERATIVE DIAGNOSIS: BPH with retention. POSTOPERATIVE DIAGNOSIS: BPH with retention. OPERATION PERFORMED: UroLift implant. SURGEON: Nader Reyes MD ANESTHESIA: General. COMPLICATIONS: None. DESCRIPTION OF PROCEDURE: Under satisfactory general anesthesia, the patient in lithotomy position, genitalia were prepped and draped in the usual sterile fashion. Cystoscopy was performed first with this special cystoscope of the UroLift. Again visualized the lateral lobes enlargement and there was a median bar, but not a median lobe per se needing any treatment. I went ahead and treated the lateral lobes by inserting the implant using the described technique, approximately around 1.5 cm from the bladder neck and then distally just proximal to the verumontanum. There was good separation of the lateral lobe and a nice channel. Again, there was no need to treat any median problem at all. The scope was replaced to inspect and then there was no active bleeding, it was removed. I elected to leave a catheter in him and admit the patient overnight because of his urinary retention, old age and make sure that he is doing okay before going to home tomorrow hopefully. The patient tolerated the procedure and anesthesia well and was sent to the recovery room in stable condition. Job ID: [id number] DocumentID: [id number] Dictated Date: 07/10/2018 10:12:30 Arborist Representative Date: 07/10/2018 14:33:33 Dictated By: NADER REYES MD
[2018-07-10] MEDS: DOCUSATE SODIUM 100 MG (COLACE) CAP PO SCH (20:24)
[2018-07-10] MEDS: TAMSULOSIN 0.4 MG (FLOMAX) CAP PO SCH (20:24)
[2018-07-10] MEDS ORDERED: ATORVASTATIN 40 MG (LIPITOR) TABLET PO SCH (21:00)
[2018-07-11 00:04] VITALS: BP 118/77
[2018-07-11 03:09] VITALS: BP 132/76
[2018-07-11] MEDS: LACTATED RINGERS 1,000 ML IV SCH ×2 (04:50→10:35)
[2018-07-11] MEDS ORDERED: KCL 10 MEQ TAB (MICRO K) PO SCH (07:00)
[2018-07-11] MEDS ORDERED: PANTOPRAZOLE 40 MG (PROTONIX) TAB PO SCH (07:00)
[2018-07-11 07:46] VITALS: BP 141/63
[2018-07-11] MEDS: TAMSULOSIN 0.4 MG (FLOMAX) CAP PO SCH (08:54)
[2018-07-11] MEDS: DOCUSATE SODIUM 100 MG (COLACE) CAP PO SCH (08:54)
[2018-07-11] MEDS ORDERED: amLODIPine 5 MG (NORVASC) TAB PO SCH (09:00)
[2018-07-11] MEDS ORDERED: SINEMET 25/100 (CARBIDOPA/LEVODOPA) TAB PO SCH (09:00)
[2018-07-11] MEDS ORDERED: NON-FORMULARY MEDICATION 1 EA EA (Carbidopa/Levodopa (Carbidopa-Levodopa 25-100 Tab) 1 EAC PO SCH (09:00)
[2018-07-11] MEDS ORDERED: NON-FORMULARY MEDICATION 1 EA EA (Amlodipine Besylate 5 MG) PO SCH (09:00)
[2018-07-11] MEDS ORDERED: FUROSEMIDE 40 MG (LASIX) TAB PO SCH (09:00)
--- NOTE | 2018-07-11 09:05 | NUR ---
OSCAR CATHETER REMOVED
--- NOTE | 2018-07-11 09:24 | Progress Note-Urology ---
Progress Note-Urology Progress Notes/Assess & Plan Progress/Assessment & Plan AFEBRILE, VSS. URINE CLEAR. NO COMPLAINTS Final Diagnosis BPH AND RETENTION JEN REYES MD July 11, 2018 09:24
--- NOTE | 2018-07-11 10:09 | NUR ---
PATIENT VOIDED. INCONTINENT IN ADDITION TO 50 MLS MEASURED IN URINAL. URINE WAS DARK YELLOW. BLADDER SCAN DONE 321 MLS. IN BLADDER. WILL CONTINUE TO MONITOR
[2018-07-11] MEDS ORDERED: LEVOFLOXACIN 500 MG/100 ML IV 100 ML IV ONE (10:15)
[2018-07-11] MEDS ORDERED: cefTRIAXone 1,000 MG/SWFI 10 ML IV PUSH IV NR ×2 (10:15)
--- NOTE | 2018-07-11 10:58 | NUR ---
PATIENT INCONTINENT OF URINE. VERY SMALL AMOUNT COLLECTED IN URINAL. LIGHT PINK COLOR.
[2018-07-11 12:18] VITALS: BP 142/72
--- NOTE | 2018-07-11 12:56 | Discharge Inst-Urology ---
Discharge Inst-Urology Discharge Medications New, Converted, or Re-newed RX: RX on Chart Patient Instructions/Follow Up Plan Please make appointment to been seen in office in 2 weeks. Rest till then Hold Flomax and ASA Keep bowels soft and moving Increase oral fluids for 48 hours and then as needed. Diet as tolerated. If questions or concerns contact your physician Or seek help at emergency department. JEN REYES MD July 11, 2018 12:56
[2018-07-11 13:30] VITALS: BP 142/72
== END 2018-07-11 13:30 | disposition home or self-care (01) ==
LOC: SDC 06:39 → 4TH 10:50 → SDC 07-11 13:30
PROVIDERS: ATTEND Urology
DX: N40.1 Benign prostatic hyperplasia with lower urinary tract symptoms (principal); R33.9 Retention of urine, unspecified; Z11.2 Encounter for screening for other bacterial diseases; N31.9 Neuromuscular dysfunction of bladder, unspecified; I48.91 Unspecified atrial fibrillation; I25.10 Atherosclerotic heart disease of native coronary artery without angina pectoris; I12.9 Hypertensive chronic kidney disease with stage 1 through stage 4 chronic kidney disease, or unspecified chronic kidney disease; E78.00 Pure hypercholesterolemia, unspecified; F03.90 Unspecified dementia, unspecified severity, without behavioral disturbance, psychotic disturbance, mood disturbance, and anxiety; N18.9 Chronic kidney disease, unspecified; K21.9 Gastro-esophageal reflux disease without esophagitis; G20 Parkinson's disease; Z79.899 Other long term (current) drug therapy; Z85.828 Personal history of other malignant neoplasm of skin
CPT/HCPCS: 87081

== ENCOUNTER → 2019-12-10 | Outpatient (CLI) | payer OTHER, MEDICARE ==
[~2019-12-10] MED LIST changes: +ASPI-586 PO; -PANT40TA3 PO; +PANT40TA52 PO; +SULF1TAB35 PO; -TAMS0.4C98 PO; +TMSL.4C PO
== END ==
LOC: LABNPT 15:05
PROVIDERS: ATTEND Nurse Practitioner Family
DX: Z20.828 Contact with and (suspected) exposure to other viral communicable diseases (principal)
CPT/HCPCS: 87635